=== PATIENT | female | born 1945 | race Caucasian/White ===

== ENCOUNTER → 2016-11-18 | Outpatient (CLI) | payer OTHER | END | disposition home or self-care (01) | LOC: EKG 11-11 10:00 → RES 11-11 11:00 → EKG 13:00 | DX: I51.7 Cardiomegaly (principal); I05.8 Other rheumatic mitral valve diseases; I05.0 Rheumatic mitral stenosis; M34.9 Systemic sclerosis, unspecified | CPT/HCPCS: 93306; 94060; 94726; 94729 ==

== ENCOUNTER → 2017-12-24 | Outpatient (CLI) | payer OTHER | END | disposition home or self-care (01) | LOC: RES 12:56 | DX: I51.7 Cardiomegaly (principal); I05.2 Rheumatic mitral stenosis with insufficiency; I05.8 Other rheumatic mitral valve diseases; I27.20 Pulmonary hypertension, unspecified; Q21.1 Atrial septal defect; J98.4 Other disorders of lung | CPT/HCPCS: 93306; 94060; 94726; 94729 ==